=== PATIENT | female | born 1970 | race Caucasian/White ===

== ENCOUNTER 2018-03-30 01:37 | Emergency (ER) | payer BC, OTHER ==
[2018-03-30] MEDS ORDERED: Adenosine 6 MG/2 ML VIAL ONE ×2 (01:51→01:58)
[2018-03-30] MEDS ORDERED: Diltiazem 125 MG/25 ML ONE (02:03)
[2018-03-30 02:26] LABS: #Basophils 0.1 thou/uL (0.0-0.2); #Eosinphils 0.2 thou/uL (0.0-0.7); #Lymphocytes 5.2 thou/uL (1.20-3.40); #Monocytes 0.7 thou/uL (0.11-0.59); %Basophils 0.8 % (0.0-1.0); %Lymphocytes 42.4 % (21.0-51.0); %Monocytes 5.5 % (0.0-10.0); %Neutrophils 49.3 % (42.0-75.0); Hemoglobin 15.6 g/dL (12.0-16.0); Mean Corpuscular HGB CONC 35.3 g/dL (32.0-36.0); Mean Corpuscular Hemoglobin 28.7 pg (27.0-31.0); Mean Corpuscular Volume 81.2 fL (78.0-98.0); Mean Platelet Volume 6.9 fL (7.4-10.4); Platelet Count 329 thou/uL (130-400); RBC Distribution Width 12.1 % (11.5-14.5); Red Blood Cell (RBC) Count 5.43 mill/uL (4.20-5.40); White Blood Cell (WBC) Count 12.1 thou/uL (4.8-10.8)
[2018-03-30 02:34] LABS: ALT (SGPT) 18 U/L (8-55); AST (SGOT) 26 U/L (5-34); Albumin 4.3 g/dL (3.5-5.0); Alkaline Phosphatase 94 U/L (40-150); Anion Gap 16 mmol/L (10-20); BUN (Urea Nitrogen) 16 mg/dL (7.0-18.7); Bilirubin, Total 0.2 mg/dL (0.2-1.2); Calc. Creatinine Clearance 0 mL/min (70-130); Calcium 9.8 mg/dL (7.8-10.44); Carbon Dioxide 21 mmol/L (22-29); Chloride 110 mmol/L (98-107); Estimated GFR-MDRD 79; Globulin 3.2 g/dL (2.4-3.5); Glucose 188 mg/dL (70-105); Potassium 3.6 mmol/L (3.5-5.1); Protein, Total 7.5 g/dL (6.0-8.3); Sodium 143 mmol/L (136-145)
--- NOTE | 2018-03-30 07:29 | RAD ---
PORTABLE CHEST: DATE: 03/30/2018. FINDINGS: An AP portable film at 0158 shows mild cardiomegaly. The vessels seem slightly congested. No lobar consolidation or effusion was seen. The trachea is midline. IMPRESSION: Mild cardiomegaly and probable slight congestive change. POS: HOME
== END 2018-03-30 02:20 | disposition short-term general hospital (02) ==
LOC: BURERS 01:37
DX: I47.1 Supraventricular tachycardia (principal); E11.9 Type 2 diabetes mellitus without complications; F17.210 Nicotine dependence, cigarettes, uncomplicated
CPT/HCPCS: 71045; 80053; 83880; 84484; 85025; 93005; 96374; J0153

== ENCOUNTER → 2019-04-29 | Emergency (ER) | payer OTHER ==
[2019-04-29 06:03] LABS: #Basophils 0.1 thou/uL (0.0-0.2); #Eosinphils 0.2 thou/uL (0.0-0.7); #Lymphocytes 2.9 thou/uL (1.20-3.40); #Monocytes 0.3 thou/uL (0.11-0.59); #Neutrophils 5.1 thou/uL (1.40-6.50); %Basophils 0.6 % (0.0-1.0); %Eosinophils 1.8 % (0.0-10.0); %Monocytes 3.9 % (0.0-10.0); %Neutrophils 59.7 % (42.0-75.0); Hemoglobin 13.9 g/dL (12.0-16.0); Mean Corpuscular HGB CONC 32.4 g/dL (32.0-36.0); Mean Corpuscular Hemoglobin 27.6 pg (27.0-31.0); Mean Corpuscular Volume 85.4 fL (78.0-98.0); Mean Platelet Volume 6.9 fL (7.4-10.4); Platelet Count 231 thou/uL (130-400); RBC Distribution Width 12.8 % (11.5-14.5); Red Blood Cell (RBC) Count 5.04 mill/uL (4.20-5.40); White Blood Cell (WBC) Count 8.6 thou/uL (4.8-10.8)
[2019-04-29 06:17] LABS: ALT (SGPT) 24 U/L (8-55); AST (SGOT) 27 U/L (5-34); Albumin 4.3 g/dL (3.5-5.0); Alkaline Phosphatase 87 U/L (40-110); Anion Gap 18 mmol/L (10-20); BUN (Urea Nitrogen) 15 mg/dL (7.0-18.7); Bilirubin, Total 0.5 mg/dL (0.2-1.2); Calc. Creatinine Clearance 0 mL/min (70-130); Calcium 9.6 mg/dL (7.8-10.44); Carbon Dioxide 21 mmol/L (22-29); Chloride 106 mmol/L (98-107); Estimated GFR-MDRD 69; Globulin 2.9 g/dL (2.4-3.5); Glucose 294 mg/dL (70-105); Potassium 3.4 mmol/L (3.5-5.1); Protein, Total 7.2 g/dL (6.0-8.3); Sodium 142 mmol/L (136-145)
--- NOTE | 2019-04-29 07:34 | RAD ---
PORTABLE CHEST: Date: 04/29/2019 An AP portable film at 1805 hours is compared with a 03/30/18 study. There has been no adverse interval change. The heart size is normal. There is no vascular congestion, edema, or pleural effusion. The lungs are clear. The mediastinum appears normal. IMPRESSION: No acute thoracic findings. POS: HOME
== END ==
LOC: BURERS 05:18
DX: R00.0 Tachycardia, unspecified (principal); E11.9 Type 2 diabetes mellitus without complications; Z87.891 Personal history of nicotine dependence; Z79.82 Long term (current) use of aspirin; Z79.899 Other long term (current) drug therapy
CPT/HCPCS: 36416; 71045; 80053; 83880; 85025; 93005

== ENCOUNTER 2019-12-10 18:07 | Outpatient (CLI) | payer OTHER ==
--- NOTE | 2019-12-10 19:30 | RAD ---
LEFT FOOT THREE VIEWS: 12/10/19 No fracture, recent or remote, was appreciated. There was no substantial arthritic change. The [place] joints were difficult to assess well, but there was no sign of dislocation. No periosteal reaction or areas of bony destruction were seen. A very large calcaneal spur was noted. A vertical density on the plantar aspect of the foot was thought to be film artifact. IMPRESSION: No acute bony findings. POS: HOME
== END 2019-12-10 18:08 | disposition home or self-care (01) ==
LOC: BURRAD 18:07
DX: M79.672 Pain in left foot (principal); G89.29 Other chronic pain

== ENCOUNTER 2024-04-28 19:50 | Emergency (ER) | payer BC | END 2024-04-28 22:30 | disposition home or self-care (01) | LOC: BURERS 19:50 | DX: S83.92XA Sprain of unspecified site of left knee, initial encounter (principal); Z87.891 Personal history of nicotine dependence; X58.XXXA Exposure to other specified factors, initial encounter | CPT/HCPCS: 99283 ==